=== PATIENT | female | born 1980 | race Caucasian/White ===

== ENCOUNTER 2019-03-02 21:22 | Emergency (ER) | payer OTHER ==
[~2019-03-02] VITALS: Ht 175.3 cm; Wt 102.1 kg
[~2019-03-02 21:22] MED LIST: ALBIPROI INH; ALBU90I INH; ALBU90OI; ALBU90OI61 INH; ALPR.5; ARIP15 PO; CEPH250A; CITA20 PO; CYCL10 PO; DOXY100 PO; ESCI10 PO; FLUSAL1005 IH; HYDACE5 PO; HYDMOR2 PO; IBUP800 PO; LORA1; LORA1 PO; METH40; MONT10T PO; NAPR500 PO; Naprosyn500 MG PO; OLAN5 PO; OXYACE5T PO; PRED20 PO; PROM25; PROM25 PO; PROP10; RXCYCL10 PO; RXHYDACE PO; RXHYDMOR2 PO; YAZ; [UNRECOGNIZED DRUG - REMARK]
[2019-03-02] MEDS ORDERED: CRUTCH2 XX (23:31)
[2019-03-02] MEDS ORDERED: Norco 5-325 Ta1 EACH PO (23:31)
== END 2019-03-03 00:17 | disposition home or self-care (01) ==
LOC: ER 21:22
DX: S82.831A Other fracture of upper and lower end of right fibula, initial encounter for closed fracture (principal); S93.402A Sprain of unspecified ligament of left ankle, initial encounter; S90.811A Abrasion, right foot, initial encounter; M54.5 Low back pain; G89.29 Other chronic pain; F17.200 Nicotine dependence, unspecified, uncomplicated; Z88.0 Allergy status to penicillin; Z88.5 Allergy status to narcotic agent; Z91.040 Latex allergy status; W10.9XXA Fall (on) (from) unspecified stairs and steps, initial encounter
CPT/HCPCS: 29505; 73590; 73610; 73630; 90471; 90714; 99283-25; A9270

== ENCOUNTER 2023-08-07 21:06 | Emergency (ER) | payer BC, OTHER ==
[~2023-08-07] VITALS: Ht 170.2 cm; Wt 112.0 kg
[~2023-08-07 21:06] MED LIST changes: +ALBU90OI INH; +CRUTCH2 XX; +FEROSUL PO; +FERSU300 PO; +Norco 5-325 Ta1 EACH PO; +PRED10 PO; +Ventolin5 MG/1 ML INH
[2023-08-07 21:36] LABS: BASOPHILS ABSOLUTE AUTO 0.05 K/mm3 (0.00-0.23); BASOPHILS PERCENT AUTO 0 % (0-2); EOSINOPHILS ABSOLUTE AUTO 0.13 K/mm3 (0.00-0.68); EOSINOPHILS PERCENT AUTO 1 % (0-6); Hematocrit 45.1 % (33.0-51.0); Hemoglobin 14.6 g/dL (11.5-16.0); IMMATURE GRAN ABSOLUTE AUTO 0.04 K/mm3 (0.00-0.10); IMMATURE GRAN PERCENT AUTO 0 % (0-1); LYMPHOCYTES ABSOLUTE AUTO 2.28 K/mm3 (0.84-5.20); LYMPHOCYTES PERCENT AUTO 15 % (21-46); MONOCYTES ABSOLUTE AUTO 0.92 K/mm3 (0.16-1.47); MONOCYTES PERCENT AUTO 6 % (4-13); Mean Corpuscular HGB 27.7 pg (26.0-34.0); Mean Corpuscular HGB Conc 32.4 g/dL (31.5-36.5); Mean Corpuscular Volume 86 fL (80-100); Mean Platelet Volume 8.8 fL (9.1-12.4); NEUTROPHILS ABSOLUTE AUTO 12.11 K/mm3 (1.96-9.15); NEUTROPHILS PERCENT AUTO 78 % (41-73); Platelet Count 331 K/mm3 (150-400); RDW Coefficient Variation 14.1 % (11.7-14.2); RDW Standard Deviation 44.1 fL (35.1-46.3); Red Blood Cell Count 5.27 M/mm3 (3.80-5.20); White Blood Cell Count 15.53 K/mm3 (4.00-11.30)
[2023-08-07 21:59] LABS: Alanine Aminotransfer (ALT/SGP 31 U/L (12-78); Albumin, Blood 3.9 g/dL (3.4-5.0); Alk Phos 84 U/L (50-136); Anion Gap 4 mmol/L (6-16); Aspartate Aminotrans (AST/SGOT 34 U/L (12-37); Beta HCG, Quantitative, Serum <1 mIU/mL (0-3); Bilirubin, Total 0.3 mg/dL (0.1-1.0); Blood Urea Nitrogen 15 mg/dL (8-24); Bun/Creatinine Ratio 23.5 (12.0-20.0); CO2, Blood 25 mmol/L (21-32); Calcium, Blood 9.2 mg/dL (8.5-10.1); Chloride, Blood 111 mmol/L (98-108); Creatinine, Blood 0.64 mg/dL (0.40-1.00); Globulin, Blood 4.1 g/dL (2.2-4.0); Glomerular Filtration Rate 112 (60-); Glucose, Blood 110 mg/dL (70-99); Potassium, Blood 3.4 mmol/L (3.5-5.5); Sodium, Blood 140 mmol/L (136-145)
[2023-08-07] MEDS ORDERED: Aspirin 325 MG Tab PO ONE (22:15)
[2023-08-07] MEDS ORDERED: Potassium Chloride 20 MEQ TabCR PO ONE (22:15)
[2023-08-07 23:06] LABS: C-REACTIVE PROTEIN, EXT RANGE 3.25 mg/dL (0.000-0.300)
[2023-08-07] MEDS ORDERED: Ketorolac Tromethamine 30mg Vial IV ONE (23:30)
[2023-08-07] MEDS ORDERED: NS 1,000 ML IV SCH (23:30)
[2023-08-08] MEDS ORDERED: Mag Hydrox/AL Hydrox/Simeth 30 ML UDC PO ONE (01:20)
[2023-08-08] MEDS ORDERED: Lidocaine 2% Viscous Soln 15 ML UDC PO ONE (01:20)
[2023-08-08] MEDS ORDERED: NS 1,000 ML IV SCH (01:55)
[2023-08-08] MEDS ORDERED: FentaNYL Citrate 50 MCG/ML 2 ML Injection IV ONE (02:55)
[2023-08-08] MEDS ORDERED: Lidocaine 4% 1 Patch TOP ONE (02:55)
[2023-08-08] MEDS ORDERED: AZIT250 PO (04:17)
[2023-08-08 04:42] VITALS: BP 131/89
== END 2023-08-08 04:35 | disposition home or self-care (01) ==
LOC: ER 21:06
PROVIDERS: Student in an Organized Health Care Education/Training Program
DX: J18.9 Pneumonia, unspecified organism (principal); S29.011A Strain of muscle and tendon of front wall of thorax, initial encounter; R00.0 Tachycardia, unspecified; R70.0 Elevated erythrocyte sedimentation rate; E87.6 Hypokalemia; D72.829 Elevated white blood cell count, unspecified; J45.909 Unspecified asthma, uncomplicated; M32.9 Systemic lupus erythematosus, unspecified; G89.29 Other chronic pain; Z88.5 Allergy status to narcotic agent; Z88.0 Allergy status to penicillin; Z91.040 Latex allergy status; Z79.51 Long term (current) use of inhaled steroids; Z79.899 Other long term (current) drug therapy; X58.XXXA Exposure to other specified factors, initial encounter; Z87.891 Personal history of nicotine dependence
CPT/HCPCS: 71046; 80053; 83690; 84484; 84702; 85025; 85379; 85651; 86140; 93005; 93010; 96361; 96374; 96375; 99285-25; A9270; J1885; J3010; J7030

== ENCOUNTER → 2024-04-28 | Outpatient (CLI) | payer OTHER ==
[~2024-04-28] MED LIST changes: +AZIT250 PO
[2024-05-09 07:43] LABS: HPV HIGH RISK BY TMA Not Detected; HPV SOURCE Cervical
== END ==
LOC: LAB 16:58 → LAB SHORT 16:58
PROVIDERS: Obstetrics & Gynecology
DX: Z01.419 Encounter for gynecological examination (general) (routine) without abnormal findings (principal)
CPT/HCPCS: 87624; G0123

== ENCOUNTER 2024-09-18 06:06 | Day surgery (SDC) | payer OTHER ==
[~2024-09-18] VITALS: Ht 172.7 cm; Wt 105.6 kg
[2024-09-18] VITALS (16 sets, daily range): BP systolic 108–147; BP diastolic 61–85
[~2024-09-18 06:06] MED LIST changes: +SYMBICORT 160-4.6 GM INH
[2024-09-18] MEDS ORDERED: CeFAZolin Sodium 2,000 MG in NS 100 ML IV SCH (06:25)
[2024-09-18] MEDS ORDERED: Lactated Ringer's 1,000 ML IV SCH (06:25)
[2024-09-18] MEDS ORDERED: propofoL 200 ML IV ONE (06:47)
[2024-09-18] MEDS ORDERED: Lidocaine HCl 4% 5 ML SDA ONE (06:47)
[2024-09-18] MEDS ORDERED: Dexamethasone Sod Phos 10 MG/ML 1ML VIAL ONE (06:57)
[2024-09-18] MEDS ORDERED: Ketorolac Tromethamine 30mg Vial ONE (06:57)
[2024-09-18] MEDS ORDERED: Rocuronium Bromide 10 MG/ML 5ML Injection IV ONE ×2 (06:57→08:44)
[2024-09-18] MEDS ORDERED: Metoclopramide HCl 5MG / ML 2ML Vial ONE (06:57)
[2024-09-18] MEDS ORDERED: Sugammadex Sodium 200 MG/2ML SDV (100 MG/ML) ONE (06:57)
[2024-09-18] MEDS ORDERED: Ondansetron HCl 2 MG / ML 2ML Vial ONE ×2 (06:57→08:01)
[2024-09-18] MEDS ORDERED: HYDROmorphone HCl/Pf 1MG SYR ONE (06:57)
[2024-09-18] MEDS ORDERED: Dexmedetomidine HCL 200 MCG / 2 ML ONE (06:59)
[2024-09-18] MEDS ORDERED: Bupivacaine 0.25% Epi 1:200000 30 ML Vial ONE (07:04)
[2024-09-18] MEDS ORDERED: CeFAZolin Sodium 2,000 MG VIAL ONE (07:04)
[2024-09-18] MEDS ORDERED: DiphenhydrAMINE HCl 50 MG/ML 1ML Vial ONE (07:14)
[2024-09-18] MEDS ORDERED: Acetaminophen 500 MG Tab PO ONE (07:15)
[2024-09-18] MEDS ORDERED: propofoL 40 ML IV ONE (07:15)
[2024-09-18] MEDS ORDERED: Lidocaine HCl 2% 20 ML MDV ONE (07:20)
--- NOTE | 2024-09-18 07:42 | NUR ---
Ambulatory in Day Surgery WITH STEADY GAIT. History, Chart, Medications and Allergies reviewed before start of procedure. Pre-Op teaching done. Pt verbalizes understanding. ALL BELONGINGS INCLUDING CELL PHONE AND PURSE PLACED UNDER GURN. EARRING IN R EAR REMAINS IN PLACE, TAPE PLACED OVER METAL STUD, JEWELRY REFUSAL FORM SIGNED.
[2024-09-18] MEDS ORDERED: FentaNYL Citrate 50 MCG/ML 2 ML Injection ONE ×3 (08:13→10:58)
[2024-09-18] MEDS ORDERED: propofoL 20 ML IV ONE ×2 (09:50→10:41)
[2024-09-18] MEDS ORDERED: Simethicone 80 MG Chew PO PRN (11:00)
[2024-09-18] MEDS ORDERED: FentaNYL Citrate 50 MCG/ML 2 ML Injection IV PRN (11:00)
[2024-09-18] MEDS ORDERED: OxyCODONE HCL 5 MG TAB PO PRN ×2 (11:00)
[2024-09-18] MEDS ORDERED: DiphenhydrAMINE HCL 25 MG Cap PO PRN (11:00)
[2024-09-18] MEDS ORDERED: Acetaminophen 325 MG TABLET PO PRN (11:00)
[2024-09-18] MEDS ORDERED: Metoclopramide HCl 10 MG Tab PO PRN (11:05)
[2024-09-18] MEDS ORDERED: FLU VACC TS2024-25(6MOS UP)/PF 45 MCG/0.5 ML SYRINGE IM PRN (11:05)
[2024-09-18] MEDS ORDERED: Ondansetron HCl 2 MG / ML 2ML Vial IV PRN (11:05)
--- NOTE | 2024-09-18 11:41 | NUR ---
PT ARRIVED TO RM 210 AT 1128. PT ALERT, ORIENTED AND PLEASANT. LAP SITES X4 C/D/I. ABD SOFT AND TENDER WITH MOVEMENT. CALL LIGHT PLACED WITHIN REACH. ORIENTED TO , UNIT AND CALL LIGHT. PT RATES PAIN AT 4/10 AND REPORTS PAIN IS TOLERABLE.
[2024-09-18] MEDS ORDERED: Ketorolac Tromethamine 30mg Vial IV SCH ×2 (12:00→14:00)
--- NOTE | 2024-09-18 16:22 | NUR ---
SHIFT SUMMARY PT IS POD#0 FROM [facility] WITH DR. MENDEZ. PAIN MANAGED WITH PO PAIN MEDICATION. PT HAS TOLERATED PO, ABLE TO AMBULATE AND ABLE TO VOID. VSS. PT USES THE CALL LIGHT APPROPRIATELY.
[2024-09-18] MEDS ORDERED: OXYC5 PO (18:04)
[2024-09-18] MEDS ORDERED: IBUP800 PO (18:05)
--- NOTE | 2024-09-18 19:17 | NUR ---
DISCHARGE PT PROVIDED WITH WRITTEN AND VERBAL DISCHARGE INSTRUCTONS, SHE REPORTED UNDERSTANDING. PT ABLE TO VOID, PAIN MANAGED, TOLERATING PO, VSS AND ABLE TO AMBULATE PRIOR TO DISCHARGE. PT DISCHARGED HOME AT APPROXIMATELY 1830.
== END 2024-09-18 18:40 | disposition home or self-care (01) ==
LOC: ORSCMMR 06:06 → ORD 07:30 → SURS 11:12 → ORSCMMR 18:40 → ORD 09-25 07:30
PROVIDERS: Obstetrics & Gynecology
PROC: 0UT7FZZ Resection of Bilateral Fallopian Tubes, Via Natural or Artificial Opening With Percutaneous Endoscopic Assistance (ICD-10-PCS; principal; 2024-09-18 07:30)
PROC: 0UT9FZZ Resection of Uterus, Via Natural or Artificial Opening With Percutaneous Endoscopic Assistance (ICD-10-PCS; principal; 2024-09-18 07:30)
DX: N92.5 Other specified irregular menstruation (principal); N80.03 Adenomyosis of the uterus; N73.6 Female pelvic peritoneal adhesions (postinfective); N83.8 Other noninflammatory disorders of ovary, fallopian tube and broad ligament; G47.33 Obstructive sleep apnea (adult) (pediatric); J44.89 Other specified chronic obstructive pulmonary disease; Z87.891 Personal history of nicotine dependence; K21.9 Gastro-esophageal reflux disease without esophagitis; E66.9 Obesity, unspecified; Z68.35 Body mass index [BMI] 35.0-35.9, adult; Z79.899 Other long term (current) drug therapy
CPT/HCPCS: 86850; 86900; 86901; 88307; 93005; 93010; A9270; J0690; J1100; J1171; J1200; J1885; J2003; J2405; J2704; J2765; J3010; J7120